=== PATIENT | male | born 1960 | race Caucasian/White ===

== ENCOUNTER 2020-09-10 23:50 | Observation (INO) | payer MEDICAID ==
[2020-09-11] MEDS ORDERED: Sodium Chloride 0.9% 10 ML Syringe FLUSH PRN (00:14)
[2020-09-11] MEDS ORDERED: fentaNYL 100 MCG/2 ML SDV IVPUSH ONE ×2 (00:14→00:34)
--- NOTE | 2020-09-11 00:14 | EDM.PDOC ---
ED HPI GENERAL MEDICAL PROBLEM - General Stated Complaint: leg injury Time Seen by Provider: 09/11/20 00:05 Source of Information: Reports: Patient History Limitations: Reports: No Limitations - History of Present Illness INITIAL COMMENTS - FREE TEXT/NARRATIVE: Patient comes emergency department today with complaints of an injury to his lower extremity. This patient drinks alcohol on a daily basis. Tonight he was standing in his kitchen when he slipped injuring his right distal tibia striking it on a Box. He did not hit his head. There was no loss of conscious. He noted that his foot was quite a bit angulated to the side. He summoned the ambulance and he was brought to the emergency department for further evaluation. On arrival the patient complains of pain to his right lower extremity primarily just above the ankle. He denies any paresthesias of the right lower extremity. He denies any other injury or trauma to the right lower extremity. Right Lower Leg Pain Score (Numeric/FACES): 10 - Related Data Allergies Allergy/AdvReac Type Severity Reaction Status Date / Time No Known Allergies Allergy Verified 09/11/20 01:36 Home Meds: Home Meds Albuterol [Proventil HFA] 2 puff PO Q4H PRN 06/12/15 [History] atorvaSTATin [Lipitor] 40 mg PO DAILY 06/12/15 [History] metFORMIN [Glucophage] 1,000 mg PO BIDMEALS 06/12/15 [History] Allopurinol [Zyloprim] 100 mg PO DAILY 09/11/20 [History] Aspirin [Aspirin EC] 81 mg PO DAILY 09/11/20 [History] Cyanocobalamin (Vitamin B-12) [Vitamin B-12] 1,000 mcg PO DAILY 09/11/20 [History] Non-Formulary Medication [NF Drug] 1 puff INH DAILY 09/11/20 [History] lisinopriL [Lisinopril] 20 mg PO DAILY 09/11/20 [History] sitaGLIPtin Phosphate [Januvia] 50 mg PO DAILY 09/11/20 [History] Past Medical History Cardiovascular History: Reports: High Cholesterol, Hypertension Respiratory History: Reports: COPD Gastrointestinal History: Reports: None Genitourinary History: Reports: None Musculoskeletal History: Reports: None Neurological History: Reports: None Psychiatric History: Reports: None Other Psychiatric History: daily alcohol abuse, tobacco abuse, illicit drug use Endocrine/Metabolic History: Reports: Diabetes, Type II Other Endocrine/Metabolic History: pancreatitis Hematologic History: Reports: None Immunologic History: Reports: None Dermatologic History: Reports: Psoriasis - Past Surgical History GI Surgical History: Reports: Cholecystectomy Male Surgical History: Reports: None Review of Systems - Review of Systems Review Of Systems: Comprehensive ROS is negative, except as noted in HPI. ED EXAM, GENERAL - Physical Exam Exam: See Below Exam Limited By: Intoxication (Patient does admit to drinking alcohol on a daily basis.) General Appearance: Alert, WD/WN, Anxious Respiratory/Chest: No Respiratory Distress, Lungs Clear Cardiovascular: Normal Peripheral Pulses, Regular Rate, Rhythm Peripheral Pulses: 2+: Posterior Tibial (L), Posterior Tibial (R), Dorsalis Pedis (L), Dorsalis Pedis (R) GI/Abdominal: Normal Bowel Sounds, Soft (Male) Exam: Deferred Rectal (Males) Exam: Deferred Extremities: No: Normal Inspection (Left lower extremity is unremarkable. Right lower extremity just above the ankle on the distal aspect of the tibia there is an obvious deformity with quite a bit of crepitus and laxity of the central region of the bone. There is no breaks in the skin. The ankle is rather unremarkable without any swelling or tenderness. He has easily palpated dorsalis pedis and posterior tibialis pulses. He is foot just below the area of deformity in the distal tibia is angulated about 90 degrees laterally.) Neurological: Alert, Oriented, Normal Cognition, No Motor/Sensory Deficits Psychiatric: Normal Affect, Normal Mood Skin Exam: Warm, Dry, Intact, Normal Color Course - Vital Signs Last Recorded V/S: Last Vital Signs Temp 97.5 F 09/11/20 10:00 Pulse 71 09/11/20 10:00 Resp 16 09/11/20 10:00 BP 127/76 09/11/20 10:00 Pulse Ox 96 09/11/20 05:47 - Orders/Labs/Meds Orders: Active Orders 24 hr Category Date Time Status Admission Status [Patient Status] [ADT] Routine ADT 09/11/20 01:43 Active Peripheral IV Insertion Adult [OM.PC] Stat Oth 09/11/20 00:14 Ordered Labs: Laboratory Tests 09/11/20 Range/Units 01:53 SARS CoV-2 RNA Rapid WILDER Negative (NEGATIVE) Meds: Medications Discontinued Medications Generic Name Dose Route Start Last Admin Trade Name Freq PRN Reason Stop Dose Admin Allopurinol 100 mg 09/11/20 09:15 09/11/20 09:45 Zyloprim PO Not Given DAILY [facility] Atorvastatin Calcium 40 mg 09/11/20 09:15 09/11/20 09:45 Lipitor PO Not Given DAILY [facility] Cyanocobalamin 1,000 mcg 09/11/20 09:15 09/11/20 09:45 Vitamin B12 PO Not Given DAILY [facility] Fentanyl 50 mcg 09/11/20 00:14 09/11/20 00:22 Sublimaze IVPUSH 09/11/20 00:15 50 mcg ONETIME ONE Administration Fentanyl 50 mcg 09/11/20 00:34 09/11/20 00:41 Sublimaze IVPUSH 09/11/20 00:35 50 mcg ONETIME ONE Administration Hydromorphone HCl 0.5 mg 09/11/20 02:11 09/11/20 07:50 Dilaudid IVPUSH 0.5 mg Q4H PRN Administration Pain (severe 7-10) Multivitamins/Minerals 10 ml/ 1,011.2 mls @ 150 mls/hr 09/11/20 02:30 09/11/20 04:05 Folic Acid 1 mg/ Thiamine HCl IV 09/13/20 09:15 150 mls/hr 100 mg/ Sodium Chloride Q24H FELICE Administration Sodium Chloride 1,000 mls @ 500 mls/hr 09/11/20 02:30 09/11/20 02:31 Normal Saline IV 500 mls/hr ASDIRECTED FELICE Administration Ketamine HCl Confirm 09/11/20 01:03 09/11/20 02:17 Ketalar Administered 09/11/20 01:04 Not Given Dose 200 mg .ROUTE .STK-MED ONE Lisinopril 20 mg 09/11/20 09:15 09/11/20 09:45 Prinivil PO Not Given DAILY [facility] Lorazepam 0 mg 09/11/20 02:29 Ativan IV ASDIRECTED PRN Withdrawal Symptoms Protocol Metformin HCl 1,000 mg 09/11/20 09:30 09/11/20 09:46 Glucophage PO Not Given BIDMEALS [facility] Morphine Sulfate 2 mg 09/11/20 02:11 09/11/20 10:33 Morphine IVPUSH 2 mg Q2H PRN Administration Pain (severe 7-10) Nicotine 21 mg 11/04/20 02:15 09/11/20 07:50 Habitrol TRDERM 21 mg DAILY FELICE Administration Ondansetron HCl 4 mg 09/11/20 00:15 09/11/20 00:22 Zofran IV 09/11/20 00:16 4 mg ONETIME ONE Administration Ondansetron HCl 4 mg 09/11/20 02:11 Zofran IV Q6H PRN Nausea/Vomiting Propofol Confirm 09/11/20 01:03 09/11/20 02:17 Diprivan 20 Ml Administered 09/11/20 01:04 Not Given Dose 200 mg .ROUTE .STK-MED ONE Sodium Chloride 10 ml 09/11/20 00:14 Saline Flush FLUSH ASDIRECTED PRN Keep Vein Open - Radiology Interpretation Free Text/Narrative:: X-ray of the right distal tibia shows a complex distal right tibia and fibular fractures. Comminuted displaced angulated distal right tibia and fibular fractures. Reduction x-ray shows improved alignment of the fractures - Re-Assessments/Exams Free Text/Narrative Re-Assessment/Exam: Initially the patient was given 50 mcg of fentanyl IV push. X-ray of the right distal tibia shows a comminuted displaced angulated fracture. With multiple fragments. I explained to the patient that he is going to need surgical repaired with this comminuted distal tibia fibula fracture although with the angulation of the foot did be best for swelling and pain to get him in the position of neutral. Risk and benefits of a closed reduction of the right angulated comminuted distal fibula fracture was explained to the patient as well as moderate sedation by the PATROL CONDUCTOR. Verbal and written consent was obtained from the patient his questions were answered and he was comfortable with this plan. Please see the PATROL CONDUCTOR's notes for the moderate sedation. After a timeout was completed the appropriate extremity was identified the right lower extremity as well as patient and consent was verified. With manual manipulation and rotation and gentle traction I was able to realign the foot in this position a more neutral. He had continued dorsalis pedis and posterior tibialis pulses postreduction. The patient was splinted in a well- padded fiberglass sugar tong splint in the position of anatomical neutral. He continued to have appropriate CMS in the distal foot of the right lower extremity. Awoke from moderate sedation from the PATROL CONDUCTOR without complication. The patient does have a rather long extensive history of alcoholism and and daily alcohol usage. This fracture will need surgical repair for definitive treatment. I spoke with [facility] and they were tight on beds and would like us to hold him OBS for the night and transfer in the morning when a bed becomes available. I discussed the plan of care with the patient and he was comfortable with this plan and his questions answered. Departure - Departure Time of Disposition: 01:00 Disposition: Refer to Observation Clinical Impression: Tobacco dependence Acute alcohol intoxication with alcoholism Qualifiers: Complication of substance-induced condition: uncomplicated Qualified Code(s): F10.220 - Alcohol dependence with intoxication, uncomplicated Closed fracture of distal end of fibula with tibia Qualifiers: Encounter type: initial encounter Laterality: right Qualified Code(s): S82.831A - Other fracture of upper and lower end of right fibula, initial encounter for closed fracture; S82.301A - Unspecified fracture of lower end of right tibia, initial encounter for closed fracture - Discharge Information - Problem List & Annotations (1) Acute alcohol intoxication with alcoholism SNOMED Code(s): 074961488 Code(s): F10.229 - ALCOHOL DEPENDENCE WITH INTOXICATION, UNSPECIFIED Status: Acute Qualifiers: Complication of substance-induced condition: uncomplicated Qualified Code(s): F10.220 - Alcohol dependence with intoxication, uncomplicated (2) Closed fracture of distal end of right fibula and tibia SNOMED Code(s): 901059716 Code(s): S82.831A - OTH FRACTURE OF UPPER AND LOWER END OF RIGHT FIBULA, INIT; S82.301A - UNSP FRACTURE OF LOWER END OF RIGHT TIBIA, INIT FOR CLOS FX Status: Acute (3) Tobacco dependence SNOMED Code(s): 67366064 Code(s): F17.200 - NICOTINE DEPENDENCE, UNSPECIFIED, UNCOMPLICATED Status: Acute - Problem List Review Problem List Initiated/Reviewed/Updated: Yes - My Orders Last 24 Hours: My Active Orders 09/11/20 00:14 Peripheral IV Insertion Adult [OM.PC] Stat 09/11/20 01:43 Admission Status [Patient Status] [ADT] Routine - Assessment/Plan Last 24 Hours: My Active Orders 09/11/20 00:14 Peripheral IV Insertion Adult [OM.PC] Stat 09/11/20 01:43 Admission Status [Patient Status] [ADT] Routine Assessment:: A/P Admit OBs for the night and will plan on transfer to [facility] in the morning when bed available. 1. Closed fracture of the right distal tibia. Is a comminuted fracture that was initially angulated and reduced in the emergency department with moderate sedation by anesthesia. He was placed in a sugar tong splint. He had appropriate pedal pulses following the reduction. We will use morphine and Dilaudid for pain. We will keep him n.p.o. his most likely he will have surgery possibly today. Will monitor for appropriate CMS. We will also have ice to the lower extremity. He is nonweightbearing due to this comminuted fracture. Plan on transferring to [facility] in [place] in the morning. 2. Due to alcohol intoxication in the presence of alcoholism. Patient's alcohol is 260 at this time it is unlikely for him to have alcohol withdrawal while he is in our care here under observation. Although we will ensure that he is monitored with CIWA scoring. As needed Ativan IV due to his need to be n.p.o. We will also get him a banana bag due to his chronic alcohol abuse. 3. Tobacco dependence. 21 mg nicotine patch every 24 hours. VTE: Short stay at our facility. We will place YANNI stockings to the left lower extremity. Sepsis: No risk at this time no fever normal white count this is a closed fra cture. We will continue to monitor. CODE STATUS code level 1.
[2020-09-11] MEDS ORDERED: Ondansetron 4 MG/2 ML SDV IV ONE (00:15)
[2020-09-11] MEDS ORDERED: Ketamine 200 MG/20 ML MDV ONE (01:03)
[2020-09-11] MEDS ORDERED: Propofol 200 MG/20 ML SDV ONE (01:03)
[2020-09-11] MEDS ORDERED: Ondansetron 4 MG/2 ML SDV IV PRN (02:11)
[2020-09-11] MEDS ORDERED: LORazepam 2 MG/ML SDV IV PRN (02:29)
[2020-09-11] MEDS ORDERED: Sodium Chloride 0.9% 1,000 ML IV SCH (02:30)
[2020-09-11] MEDS ORDERED: MVI, Adult with Vitamin K 10 ML, Folic Acid 1 MG, Thiamine 100 MG in Sodium Chloride 0.... IV SCH ×4 (02:30)
[2020-09-11 02:59] LABS: CHLORIDE,CL 96 mmol/L (98-107); SODIUM,NA 131 mmol/L (136-145)
[2020-09-11 03:00] LABS: ANION GAP 16.4 mmol/L (10-20)
[2020-09-11] MEDS: Nicotine 21 MG/24 Hr Patch TRDERM SCH ×2 (03:15→07:50)
[2020-09-11] MEDS: HYDROmorphone 0.5 MG/0.5 ML Syringe IVPUSH PRN ×2 (03:17→07:50)
[2020-09-11] MEDS: Morphine 2 MG/ML SYRINGE IVPUSH PRN ×3 (04:18→10:33)
--- NOTE | 2020-09-11 07:02 | CR ---
[id number] RAD/RAD Tibia Fibula Right EXAM: RAD Tibia Fibula Right CLINICAL DATA: POST REDUCTION COMPARISON: CORRELATION IS MADE WITH THE EARLIER EXAM TODAY FINDINGS: There is improved alignment of fracture fragments There is still residual anterior displacement of the distal right tibial fracture fragment and lateral displacement of the distal right fibular fracture IMPRESSION: IMPROVED ALIGNMENT Juan Lyons MD 09/11/20 0659 Thank you for allowing us to participate in the care of your patient.
--- NOTE | 2020-09-11 07:05 | CR ---
[id number] RAD/RAD Tibia Fibula Right EXAM: RAD Tibia Fibula Right CLINICAL DATA: TRAUMA COMPARISON: NO PREVIOUS SIMILAR EXAM IS AVAILABLE. FINDINGS: Comminuted displaced angulated distal right tibial and fibular fractures are seen with anterior displacement of the distal right tibial fracture fragment and angulation of the fracture fragments convex medially. IMPRESSION: COMPLEX DISTAL RIGHT TIBIAL AND FIBULAR FRACTURES Juan Lyons MD 09/11/20 0704 Thank you for allowing us to participate in the care of your patient.
--- NOTE | 2020-09-11 08:05 | PCM.DCSUM1 ---
Discharge Summary - Hospital Course Free Text/Narrative:: Patient has had good pain control throughout the night. In the morning I called and spoke with Dr. Ge as well as Dr. Landeros at [facility] in [place]. HPI ER course and observation course were explained to them. They did have the x-rays available. They accepted the patient in transfer at this time. He did not have any signs of alcohol withdrawal throughout the night. He continues to be n.p.o. HPI Initial Comments: Patient was admitted under observation due to a closed distal tib-fib fracture. With angulation and comminution. He had moderate sedation and reduction of the fracture in the emergency department. He also has a history of chronic alcohol abuse and is currently intoxicated upon arrival. - Discharge Data Discharge Date: 09/11/20 Discharge Disposition: DC/Tfer to Acute Hospital 02 Condition: Good - Referral to Home Health Primary Care Physician: Katherin Cheng PA-C - Discharge Diagnosis/Problem(s) (1) Closed fracture of distal end of right fibula and tibia SNOMED Code(s): 484288715 ICD Code: S82.831A - OTH FRACTURE OF UPPER AND LOWER END OF RIGHT FIBULA, INIT; S82.301A - UNSP FRACTURE OF LOWER END OF RIGHT TIBIA, INIT FOR CLOS FX Status: Acute - Patient Summary/Data Hospital Course: Patient was admitted into the hospital from the ER for observation status for a right distal tibia closed comminuted fracture. The patient was at home when he slipped fell injuring his right lower extremity. He came to the emergency department was noted to have a comminuted closed distal right tib-fib fracture with angulation laterally. He had normal CMS upon arrival. He received ketamine and propofol in the emergency department for reduction of the angulated right distal tib-fib fracture. He was placed in a sugar tong splint. He was placed under observation at the hospital due to bed status in [place] until we are able to get a bed we will keep him here in [place]. Patient does have a longstanding history of alcohol abuse and is currently intoxicated with an alcohol of greater than 200. He was given Dilaudid and morphine throughout the night. He had rice therapy to the right lower extremity. He was nonweightb earing. He did not show any signs of alcohol withdrawal while in the hospital and did not require any lorazepam. He was kept n.p.o. throughout the night. After speaking with Dr. Landeros and Dr. Ge in the morning from [facility] in [place]. They accepted the patient in transfer and he will be sent by ambulance for possible surgery today. - Discharge Plan Home Medications: Home Meds Albuterol [Proventil HFA] 2 puff PO Q4H PRN 06/12/15 [History] atorvaSTATin [Lipitor] 40 mg PO DAILY 06/12/15 [History] metFORMIN [Glucophage] 1,000 mg PO BIDMEALS 06/12/15 [History] Allopurinol [Zyloprim] 100 mg PO DAILY 09/11/20 [History] Aspirin [Aspirin EC] 81 mg PO DAILY 09/11/20 [History] Cyanocobalamin (Vitamin B-12) [Vitamin B-12] 1,000 mcg PO DAILY 09/11/20 [Hist ory] Non-Formulary Medication [NF Drug] 1 puff INH DAILY 09/11/20 [History] lisinopriL [Lisinopril] 20 mg PO DAILY 09/11/20 [History] sitaGLIPtin Phosphate [Januvia] 50 mg PO DAILY 09/11/20 [History] Forms: ED Department Discharge, Interfacility Transfer EMTALA Referrals: Katherin Cheng PA-C [Primary Care Provider] - - Discharge Summary/Plan Comment DC Time >30 min.: Yes - General Info Date of Service: 09/11/20 Admission Dx/Problem (Free Text: Closed noted distal fracture of the right tib-fib region. Acute alcohol intoxication in the presence of alcoholism. Functional Status: Reports: Pain Controlled (Patient relates that his pain is been controlled well during the night. He still has quite a bit of throbbing sensation at times.) - Review of Systems General: Reports: No Symptoms HEENT: Reports: No Symptoms Pulmonary: Reports: No Symptoms Cardiovascular: Reports: No Symptoms Gastrointestinal: Reports: No Symptoms Genitourinary: Reports: No Symptoms Musculoskeletal: Reports: Leg Pain Skin: Reports: No Symptoms Neurological: Reports: No Symptoms Psychiatric: Reports: No Symptoms - Patient Data Vitals - Most Recent: Last Vital Signs Temp 97.1 F 09/11/20 05:47 Pulse 67 09/11/20 05:47 Resp 18 09/11/20 05:47 BP 107/69 11/04/20 05:47 Pulse Ox 96 09/11/20 05:47 Weight - Most Recent: 163 lb I&O - Last 24 hours: Intake & Output 09/10/20 09/11/20 09/11/20 22:59 06:59 14:59 Intake Total 1200 Output Total 1500 Balance -300 Lab Results - Last 24 hrs: Laboratory Results - last 24 hr 09/11/20 09/11/20 09/11/20 Range/Units 01:53 02:33 02:33 WBC 8.2 (4.0-10.0) x10^3/uL RBC 3.75 L (4.5-6.0) x10^6/uL Hgb 13.3 L (14.0-18.0) g/dL Hct 38.4 L (40.0-52.0) % MCV 102.4 H D (78.0-93.0) fL MCH 35.5 H (26.0-32.0) pg MCHC 34.6 (32.0-36.0) g/dL RDW Coeff of Dianna 13.1 (10.0-15.0) % Plt Count 154 (130-400) x10^3/uL Add Manual Diff Yes Neutrophils % (Manual) 79 (50-80) % Band Neutrophils % 3 (0-6) % Lymphocytes % (Manual) 10 L (25-50) % Reactive Lymphs % 2 H (0) % Monocytes % (Manual) 6 (2-11) % Platelet Estimate Adequate Macrocytosis 1+ slight H Rouleaux 1+ slight H Sodium 131 L (136-145) mmol/L Potassium 4.4 (3.5-5.1) mmol/L Chloride 96 L (98-107) mmol/L Carbon Dioxide 23 (21-32) mmol/L Anion Gap 16.4 (10-20) mmol/L BUN 10 (7-18) mg/dL Creatinine 1.1 (0.70-1.30) mg/dL Est Cr Clr Drug Dosing 62.83 mL/min Estimated GFR (MDRD) > 60 Glucose 140 H (74-106) mg/dL POC Glucose (74-106) mg/dL Calcium 8.1 L (8.5-10.1) mg/dL Corrected Calcium 8.42 L (8.5-10.1) mg/dL Magnesium 2.0 (1.8-2.4) mg/dL Total Bilirubin 0.5 (0.2-1.0) mg/dL AST 28 (15-37) U/L ALT 30 (16-63) U/L Alkaline Phosphatase 68 (46-116) U/L Total Protein 7.0 (6.4-8.2) g/dL Albumin 3.6 (3.4-5.0) g/dL Globulin 3.4 Albumin/Globulin Ratio 1.06 Ethyl Alcohol 206 H (0-3) mg/dL SARS CoV-2 RNA Rapid WILDER Negative (NEGATIVE) 09/11/20 Range/Units 06:31 WBC (4.0-10.0) x10^3/uL RBC (4.5-6.0) x10^6/uL Hgb (14.0-18.0) g/dL Hct (40.0-52.0) % MCV (78.0-93.0) fL MCH (26.0-32.0) pg MCHC (32.0-36.0) g/dL RDW Coeff of Dianna (10.0-15.0) % Plt Count (130-400) x10^3/uL Add Manual Diff Neutrophils % (Manual) (50-80) % Band Neutrophils % (0-6) % Lymphocytes % (Manual) (25-50) % Reactive Lymphs % (0) % Monocytes % (Manual) (2-11) % Platelet Estimate Macrocytosis Rouleaux Sodium (136-145) mmol/L Potassium (3.5-5.1) mmol/L Chloride (98-107) mmol/L Carbon Dioxide (21-32) mmol/L Anion Gap (10-20) mmol/L BUN (7-18) mg/dL Creatinine (0.70-1.30) mg/dL Est Cr Clr Drug Dosing mL/min Estimated GFR (MDRD) Glucose (74-106) mg/dL POC Glucose 116 H (74-106) mg/dL Calcium (8.5-10.1) mg/dL Corrected Calcium (8.5-10.1) mg/dL Magnesium (1.8-2.4) mg/dL Total Bilirubin (0.2-1.0) mg/dL AST (15-37) U/L ALT (16-63) U/L Alkaline Phosphatase (46-116) U/L Total Protein (6.4-8.2) g/dL Albumin (3.4-5.0) g/dL Globulin Albumin/Globulin Ratio Ethyl Alcohol (0-3) mg/dL SARS CoV-2 RNA Rapid WILDER (NEGATIVE) Med Orders - Current: Current Medications Allopurinol (Zyloprim) 100 mg PO DAILY [facility] Cyanocobalamin (Vitamin B12) 1,000 mcg PO DAILY [facility] Hydromorphone HCl (Dilaudid) 0.5 mg IVPUSH Q4H PRN PRN Reason: Pain (severe 7-10) Last Admin: 09/11/20 07:50 Dose: 0.5 mg Documented by: Multivitamins/Minerals 10 ml/Folic Acid 1 mg/ Thiamine HCl 100 mg/ Sodium Chloride 1,011.2 mls @ 150 mls/hr IV Q24H [facility] Stop: 09/13/20 09:15 Last Admin: 09/11/20 04:05 Dose: 150 mls/hr Documented by: Lisinopril (Prinivil) 20 mg PO DAILY [facility] Lorazepam (Ativan) 0 mg IV ASDIRECTED PRN; Protocol PRN Reason: Withdrawal Symptoms Morphine Sulfate (Morphine) 2 mg IVPUSH Q2H PRN PRN Reason: Pain (severe 7-10) Last Admin: 09/11/20 06:31 Dose: 2 mg Documented by: Nicotine (Habitrol) 21 mg TRDERM DAILY [facility] Last Admin: 09/11/20 07:50 Dose: 21 mg Documented by: Non-Formulary Medication (Atorvastatin [Lipitor]) 40 mg PO DAILY [facility] Non-Formulary Medication (Metformin [Glucophage]) 1,000 mg PO BIDMEALS [facility] Ondansetron HCl (Zofran) 4 mg IV Q6H PRN PRN Reason: Nausea/Vomiting Sodium Chloride (Saline Flush) 10 ml FLUSH ASDIRECTED PRN PRN Reason: Keep Vein Open Discontinued Medications Fentanyl (Sublimaze) 50 mcg IVPUSH ONETIME ONE Stop: 09/11/20 00:15 Last Admin: 09/11/20 00:22 Dose: 50 mcg Documented by: Fentanyl (Sublimaze) 50 mcg IVPUSH ONETIME ONE Stop: 09/11/20 00:35 Last Admin: 09/11/20 00:41 Dose: 50 mcg Documented by: Sodium Chloride (Normal Saline) 1,000 mls @ 500 mls/hr IV ASDIRECTED FELICE Last Admin: 09/11/20 02:31 Dose: 500 mls/hr Documented by: Ketamine HCl (Ketalar) Confirm Administered Dose 200 mg .ROUTE .STK-MED ONE Stop: 09/11/20 01:04 Last Admin: 09/11/20 02:17 Dose: Not Given Documented by: Ondansetron HCl (Zofran) 4 mg IV ONETIME ONE Stop: 09/11/20 00:16 Last Admin: 09/11/20 00:22 Dose: 4 mg Documented by: Propofol (Diprivan 20 Ml) Confirm Administered Dose 200 mg .ROUTE .STK-MED ONE Stop: 09/11/20 01:04 Last Admin: 09/11/20 02:17 Dose: Not Given Documented by: - Exam General: Reports: Alert, Oriented HEENT: Reports: Pupils Equal, Pupils Reactive Neck: Reports: Supple Lungs: Reports: Clear to Auscultation, Normal Respiratory Effort Cardiovascular: Reports: Regular Rate, Regular Rhythm GI/Abdominal Exam: Normal Bowel Sounds, Soft (Male) Exam: Deferred Rectal (Males) Exam: Deferred Back Exam: Reports: Normal Inspection Extremities: Normal Capillary Refill. No: Normal Inspection (Patient has a sugar tong splint in place to the right lower extremity. He has normal CMS throughout the entire to the right lower extremity. Small amount of swelling not much more than he had in the emergency department last night.) Skin: Reports: Warm, Dry, Intact Neurological: Reports: No New Focal Deficit
[2020-09-11] MEDS ORDERED: Cyanocobalamin (Vitamin B12) 1,000 MCG Tab PO SCH (09:15)
[2020-09-11] MEDS ORDERED: Allopurinol 100 MG Tab PO SCH (09:15)
[2020-09-11] MEDS ORDERED: Lisinopril 20 MG Tab PO SCH (09:15)
[2020-09-11] MEDS ORDERED: atorvaSTATin 40 MG Tab PO SCH (09:15)
[2020-09-11] MEDS ORDERED: metFORMIN 500 MG Tab PO SCH (09:30)
[2020-09-11 10:59] VITALS: BP 127/76; PULSE 71
== END 2020-09-11 10:50 | disposition short-term general hospital (02) ==
LOC: VM.ED 23:50 → VM.MS 09-11 02:00
PROVIDERS: ADMIT Nurse Practitioner Family; ATTEND Nurse Practitioner Family
DX: S82.831A Other fracture of upper and lower end of right fibula, initial encounter for closed fracture (principal); S82.301A Unspecified fracture of lower end of right tibia, initial encounter for closed fracture; F10.229 Alcohol dependence with intoxication, unspecified; F17.200 Nicotine dependence, unspecified, uncomplicated; E78.00 Pure hypercholesterolemia, unspecified; I10 Essential (primary) hypertension; E11.9 Type 2 diabetes mellitus without complications; J44.9 Chronic obstructive pulmonary disease, unspecified; Z79.82 Long term (current) use of aspirin; Z20.828 Contact with and (suspected) exposure to other viral communicable diseases; Z01.812 Encounter for preprocedural laboratory examination; W01.0XXA Fall on same level from slipping, tripping and stumbling without subsequent striking against object, initial encounter; Y92.000 Kitchen of unspecified non-institutional (private) residence as the place of occurrence of the external cause; Z79.899 Other long term (current) drug therapy; Z90.49 Acquired absence of other specified parts of digestive tract; Z79.84 Long term (current) use of oral hypoglycemic drugs
CPT/HCPCS: 01462; 27788; 36415; 73590; 80053; 80307; 82962; 83735; 85025; 87635; 96361; 96374; 96375; 96376; 99140; 99284; A9270; G0378; J1170; J2270; J2405; J3010; J3411; J7030; U0002